=== PATIENT | female | born 1960 | race Caucasian/White ===

== ENCOUNTER → 2017-01-03 | Outpatient (CLI) | payer BC ==
[~2017-01-03] MED LIST: ESCI10TA17 PO
--- NOTE | 2017-01-06 08:01 | MAMMOGRAPHY REPORT ---
BILATERAL DIGITAL SCREENING MAMMOGRAM TOMOSYNTHESIS WITH CAD: 01/03/2017 CLINICAL HISTORY: Routine screening. TECHNIQUE: Breast tomosynthesis in addition to standard 2D mammography was performed. Current study was also evaluated with a Computer Aided Detection (CAD) system. COMPARISON: Comparison is made to exams dated: 01/02/2016 mammogram, 11/11/2014 mammogram, 09/09/2013 m ammogram, 09/21/2012 mammogram, 09/08/2012 mammogram, and 01/22/2011 mammogram - [facility]. BREAST COMPOSITION: The tissue of both breasts is heterogeneously dense, which may obscure small mas ses. FINDINGS: No suspicious masses, calcifications, or areas of architectural distortion are noted in ei ther breast. There has been no significant interval change compared to prior exams. Partially circum scribed and partially obscured mass in the left subareolar breast is stable compared to multiple prio r exams and considered benign given long-term stability. IMPRESSION: ACR BI-RADS CATEGORY 2: BENIGN There is no mammographic evidence of malignancy. A 1 year screening mammogram is recommended. The pa tient will receive written notification of the results. Approximately 10% of breast cancers are not detected with mammography. A negative mammographic report should not delay biopsy if a clinically suggestive mass is present. Mary Jo Reyes M.D. /:01/03/2017 14:41:55 Log Chain Worker: Oliva LE(Anneliese)(Damon), [facility] letter sent: Normal 1/2 BI-RADS Code: ACR BI-RADS Category 2: Benign
== END | disposition home or self-care (01) ==
LOC: C.MAMM 10:30
PROVIDERS: ATTEND Family Medicine
DX: Z12.31 Encounter for screening mammogram for malignant neoplasm of breast (principal)

== ENCOUNTER → 2018-01-06 | Outpatient (CLI) | payer OTHER ==
--- NOTE | 2018-01-07 13:37 | MAMMOGRAPHY REPORT ---
BILATERAL DIGITAL SCREENING MAMMOGRAM TOMOSYNTHESIS WITH CAD: 01/06/2018 CLINICAL HISTORY: Routine screening. TECHNIQUE: The study was acquired using full field digital technology and interpreted from soft copy. Breast tomosynthesis in addition to standard 2D mammography was performed. Current study was also ev aluated with a Computer Aided Detection (CAD) system. COMPARISON: Comparison is made to exams dated: 01/03/2017 mammogram, 01/02/2016 mammogram, 11/11/2014 m ammogram, 09/09/2013 mammogram, 09/08/2012 mammogram, and 01/22/2011 mammogram - [facility]ter. BREAST COMPOSITION: The tissue of both breasts is heterogeneously dense, which may obscure small mass es. FINDINGS: There is a benign partially circumscribed and obscured 12 mm mass in the anterior retroareo lar left breast, that appears stable dating back to at least 2008, therefore likely benign. Stable a symmetry in the lateral right breast. No new suspicious mass, architectural distortion or cluster of microcalcifications is seen. IMPRESSION: ACR BI-RADS CATEGORY 1: NEGATIVE There is no mammographic evidence of malignancy. A 1 year screening mammogram is recommended.( 019) The patient will receive written notification of the results. Some breast cancers are not detected with mammography. A negative mammographic report should not chandrika y biopsy if a clinically suggestive mass is present. Tyra Dugan M.D. ay/:01/06/2018 15:35:00 High Speed Printer Operator: RT Sonia(Anneliese)(M), [facility] letter sent: Normal 1/2 BI-RADS Code: ACR BI-RADS Category 1: Negative
== END | disposition home or self-care (01) ==
LOC: C.MAMM 09:06
PROVIDERS: ATTEND Family Medicine
DX: Z12.31 Encounter for screening mammogram for malignant neoplasm of breast (principal)

== ENCOUNTER 2022-10-14 11:50 | Inpatient (IN) ==
[2022-10-14] MEDS ORDERED: oxyCODONE HCL IR 5 MG TAB (IMMEDIATE RELEASE) PO STA (12:06)
--- NOTE | 2022-10-14 12:12 | Emergency Department Note ---
ED Provider Note History of Present Illness Chief Complaint: Leg Injury/Pain Stated Complaint: LEFT LEG INJURY Time Seen by Provider: 10/14/22 11:56 Source: patient Mode of arrival: ambulatory Limitations: no limitations This patient is a 62-year-old female who presents to the emergency department for evaluation of an injury to her left lower leg. Patient was standing on a table changing a light bulb when she lost her balance and fell, injuring her left leg. She denies any lightheadedness or dizziness causing the fall. She reports pain in her left lower leg, below her knee. It feels okay when she is standing still but she states that her muscles in the leg are tensing up. She did not take anything for pain prior to arrival. Home Medications Medication Instructions Recorded Confirmed Type calcium carbonate 600 mg calcium 600 mg PO DAILY 10/14/22 10/14/22 History (1,500 mg) tablet (Calcium) escitalopram oxalate 10 mg tablet 10 mg PO DAILY 10/14/22 10/14/22 History multivitamin 1 tab PO DAILY 10/14/22 10/14/22 History Allergies Allergy/AdvReac Type Severity Reaction Status Date / Time No Known Allergies Allergy Unverified 10/14/22 14:11 Past Med/Surg History Medical History (Updated 10/14/22 @ 20:47 by Alexandra Benoit PA-C) Depression with anxiety No pertinent past medical history Wrist fracture Surgical History (Updated 10/14/22 @ 15:54 by Yehuda Rojas MD) History of tubal ligation Social History Smoking Status: Never smoker Hx Alcohol Use: Yes Alcohol type: wine Hx Substance Use: No Preferred Language: Turkmen Communication Ability: Effective Nutritional Services Director Required: No Beliefs That Will Affect Care: None Current Living Situation: Spouse Feels Safe at Home: Yes Physical Exam Vital Signs Vital Signs - 24 hr 10/14/22 11:53 Temperature 36.5 C Temperature Source Temporal Artery Scan Pulse Rate 55 L Respiratory Rate 18 Respiratory Effort / Characteristics Non-Labored Spontaneous Respiratory Depth Normal Respiratory Pattern Regular Blood Pressure 118/81 Blood Pressure Mean 93 Pulse Oximetry 99 Oxygen Delivery Method Room Air Sepsis Recent Fever Within 48 Hours No Sepsis New/Unexplained Change in Mental Status No Sepsis Action Taken by Nursing No Action Required VITALS: Vitals are noted on the nurse's note and reviewed by myself. GENERAL: This is a 62-year-old female, in no acute distress, well-developed well-nourished. MUSCULOSKELETAL: No obvious deformity noted. There is tenderness to palpation of the left leg at the proximal tibia/fibula. No tenderness of the knee, ankle or foot. Full range of motion of the toes. Dorsalis pedis pulse 2+. NEURO: Patient was alert and oriented to person place and time. Distal sensa tion intact over the left lower extremity. Course Administered Medications Docusate Sodium (Docusate Sodium 100 Mg Cap) 100 mg PO BID JESSICA Stop: 11/13/22 20:59 Last Admin: 10/14/22 20:17 Dose: Not Given Documented By: EKF Oxycodone HCl (Oxycodone Hcl Ir 5 Mg Tab (Immediate Release)) 10 mg PO Q4H PRN PRN Reason: SEVERE Pain (7,8,9,10) Stop: 10/28/22 15:42 Last Admin: 10/14/22 20:16 Dose: 10 mg Documented By: EKF Discontinued Medications Oxycodone HCl (Oxycodone Hcl Ir 5 Mg Tab (Immediate Release)) 5 mg PO NOW STA Stop: 10/14/22 12:07 Last Admin: 10/14/22 12:17 Dose: 5 mg Documented By: RSL Medical Decision Making Differential Diagnosis Fracture, subluxation, dislocation, contusion, ligamentous injury, neurovascular, compartment syndrome, rhabdomyolysis, as well as other pathologies. Home Medications was personally reviewed by me Imaging Data Attestation: I personally reviewed and interpreted this imaging study as follows: Radiologist's Impression: Tibia/Fibula X-Ray 10/14/22 12:06 XR tibia fibula LT 2V HISTORY: 62 years-old Female left leg injury, fall acute pain of the left lower extremity status post fall COMPARISON: None TECHNIQUE: 2 views of the left tibia and fibula FINDINGS: Mild osteoarthritis of the knee and ankle. Small lipohemarthrosis is of the knee. Comminuted intra-articular fracture of the proximal tibia probably involves the lateral tibial plateau with fracture extension into the tibial spines, medial, lateral, anterior and posterior aspects of the proximal tibial metaphysis. Mild apex ventral angulation with mild impaction and several millimeters of lateral and posterior displacement. Lateral tibial plateau articular cortical depression. Comminuted intra-articular fracture of the proximal fibula demonstrates impaction and with 4 mm lateral displacement and mild apex medial angulation. The distal femur appears intact. Degenerative spurring of the calcaneus. IMPRESSION: 1. Acute, comminuted, angulated and mildly displaced proximal tibial fracture with cortical depression of the lateral tibial plateau. 2. Acute, comminuted, slightly angulated and mildly displaced proximal fibular fracture. 3. Lipohemarthrosis of the knee. ACT 112: Negative or not required by law. The above report was generated using voice recognition software. It may contain grammatical, syntax or spelling errors. Electronically signed by: Juan José Roe M.D. 10/14/2022 12:26 PM Knee X-Ray 10/14/22 12:57 XR knee LT 1 or 2V routine HISTORY: 62 years-old Female Need AP and Lateral gantry at Joint line, trauma acute fracture of the left knee COMPARISON: Radiographs of same day at 11:59 AM TECHNIQUE: 2 views of the left tibia and fibula FINDINGS: Mild osteoarthritis of the knee and ankle. Small lipohemarthrosis is of the knee. Comminuted intra- articular fracture of the proximal tibia probably involves the lateral tibial plateau with fracture extension into the tibial spines, medial, lateral, anterior and posterior aspects of the proximal tibial metaphysis. Mild apex ventral angulation with mild impaction and several millimeters of lateral and posterior displacement. Lateral tibial plateau articular cortical depression. Comminuted intra-articular fracture of the proximal fibula demonstrates impaction and with 4 mm lateral displacement and mild apex medial angulation. The distal femur appears intact. Degenerative spurring of the calcaneus. IMPRESSION: 1. Acute, comminuted, angulated and mildly displaced proximal tibial fracture with cortical depression of the lateral tibial plateau. Unchanged alignment. 2. Acute, comminuted, slightly angulated and mildly displaced proximal fibular fracture. 3. Lipohemarthrosis of the knee. ACT 112: Negative or not required by law. The above report was generated using voice recognition software. It may contain grammatical, syntax or spelling errors. Electronically signed by: Juan José Roe M.D. 10/14/2022 2:[address] 10/14/22 12:58 CT knee LT wo con HISTORY: 62 years-old Female preop planning, eval articular fracture no acute left knee pain status post fall COMPARISON: Knee radiographs of same day TECHNIQUE: Multiple axial CT images of the left knee were obtained without the use of IV contrast. A dose lowering technique was used consistent with the principals of ALARA. FINDINGS: Mild osteoarthritis of the knee and ankle. Small lipohemarthrosis is of the knee with mild anterior subcutaneous edema. Tendons, ligaments and menisci are not well evaluated by CT technique. Comminuted intra- articular fracture of the proximal tibia probably involves the lateral tibial plateau with fracture extension into the tibial spines, medial, lateral, anterior and posterior aspects of the proximal tibial metaphysis. Fracture lines also extend into the medial tibial plateau, most pronounced posteriorly. Mild apex ventral angulation with mild impaction and several millimeters of lateral and posterior displacement. Lateral tibial plateau articular cortical depression of 3 mm. Fracture extension into the proximal tibial metaphysis, image 241 series 3. No intra-articular bodies identified. Comminuted intra-articular fracture of the proximal fibula demonstrates impaction and with 4 mm lateral displacement and mild apex medial angulation. The distal femur appears intact. Mild tricompartmental osteoarthritis. IMPRESSION: 1. Acute, comminuted intra-articular proximal tibial fracture with mild impaction and displacement as above. Fracture lines involve the medial and lateral tibial plateaus, tibial spines and proximal tibial metaphysis. 2. Mild articular cortical depression of the lateral tibial plateau. 3. Acute, comminuted and mildly displaced proximal fibular fracture. 4. Lipohemarthrosis. ACT 112: Negative or not required by law. The above report was generated using voice recognition software. It may contain grammatical, syntax or spelling errors. Electronically signed by: Juan José Roe M.D. 10/14/2022 2:16 PM Knee X-Ray 10/14/22 13:54 XR knee RT 1 or 2V routine HISTORY: 62 years-old Female AP only, comparison to determine need of surgery acute pain of the left knee COMPARISON: Left knee radiographs of same day TECHNIQUE: AP view of the right knee FINDINGS: No acute fracture, dislocation, significant osteoarthritis or soft tissue abnormality identified. IMPRESSION: No acute fracture or dislocation. ACT 112: Negative or not required by law. The above report was generated using voice recognition software. It may contain grammatical, syntax or spelling errors. Electronically signed by: Juan José Roe M.D. 10/14/2022 2:11 PM MDM Narrative This patient is a 62-year-old female who presents to the emergency department for evaluation of an injury to her left lower leg, just distal to the knee. X- rays were obtained and reviewed by radiology and patient was found to have a tibial plateau fracture and fracture of the proximal fibula. Orthopedics was consulted and Dr. Rojas reviewed the images. He ordered additional imaging including a CT of the leg which was performed. He consulted on the patient and elected to keep her for operative management. Patient received oxycodone while in the emergency department. She was placed in a knee immobilizer. She was informed of all findings and the plan. Impression Closed fracture of lateral portion of left tibial plateau, Fracture of left proximal fibula Discharge Plan Visit Data Chief Complaint: Leg Injury/Pain Stated Complaint: LEFT LEG INJURY ED Provider: Rene Tucker ED Midlevel Provider: Alexandra Benoit Discharge Problem: Closed fracture of lateral portion of left tibial plateau, Fracture of left proximal fibula Patient Disposition: Admitted As Inpatient Discharge Instructions Interventions: ED Discharge Assessment Last Done: 10/14/22 17:57
--- NOTE | 2022-10-14 12:29 | XRay Report ---
XR tibia fibula LT 2V HISTORY: 62 years-old Female left leg injury, fall acute pain of the left lower extremity status pos t fall COMPARISON: None TECHNIQUE: 2 views of the left tibia and fibula FINDINGS: Mild osteoarthritis of the knee and ankle. Small lipohemarthrosis is of the knee. Comminuted intra-ar ticular fracture of the proximal tibia probably involves the lateral tibial plateau with fracture ext ension into the tibial spines, medial, lateral, anterior and posterior aspects of the proximal tibial metaphysis. Mild apex ventral angulation with mild impaction and several millimeters of lateral and posterior displacement. Lateral tibial plateau articular cortical depression. Comminuted intra-articular fracture of the proximal fibula demonstrates impaction and with 4 mm later al displacement and mild apex medial angulation. The distal femur appears intact. Degenerative spurri ng of the calcaneus. IMPRESSION: 1. Acute, comminuted, angulated and mildly displaced proximal tibial fracture with cortical depressio n of the lateral tibial plateau. 2. Acute, comminuted, slightly angulated and mildly displaced proximal fibular fracture. 3. Lipohemarthrosis of the knee. ACT 112: Negative or not required by law. The above report was generated using voice recognition software. It may contain grammatical, syntax o r spelling errors. Electronically signed by: Juan José Roe M.D. 10/14/2022 12:26 PM
--- NOTE | 2022-10-14 13:04 | Orthopedic Consultation ---
Date of Service October 14, 2022 Assessment & Plan (1) Closed fracture of lateral portion of left tibial plateau: (2) Fracture of left proximal fibula: History of Present Illness Reason for Consultation: . Requesting Physician: . . Allergies Allergy/AdvReac Type Severity Reaction Status Date / Time No Known Allergies Allergy Unverified 05/11/12 21:34 Home Medications Medication Instructions Recorded Confirmed Type Escitalopram (Lexapro) 10 mg PO DAILY #0 tabs 05/11/12 History Past Med/Surg History Social History Smoking Status: Never smoker Preferred Language: Urdu Feels Safe at Home: Yes Review of Systems All systems reviewed & are unremarkable except as noted in HPI & below. Physical Exam . Results & Data Results & Data Laboratory Results . Diagnostic Findings . PG Care Time/CCT Total # of Minutes Spent Total Time Spent with Patient: Total time spent is greater than 50% in coordination of care (as documented) at patient's floor/unit and/or counseling patient: Coding Diagnoses Closed fracture of lateral portion of left tibial plateau S82.122A Fracture of left proximal fibula S82.832A
--- NOTE | 2022-10-14 14:12 | XRay Report ---
XR knee LT 1 or 2V routine HISTORY: 62 years-old Female Need AP and Lateral gantry at Joint line, trauma acute fracture of the left knee COMPARISON: Radiographs of same day at 11:59 AM TECHNIQUE: 2 views of the left tibia and fibula FINDINGS: Mild osteoarthritis of the knee and ankle. Small lipohemarthrosis is of the knee. Comminute d intra- articular fracture of the proximal tibia probably involves the lateral tibial plateau with f racture extension into the tibial spines, medial, lateral, anterior and posterior aspects of the prox imal tibial metaphysis. Mild apex ventral angulation with mild impaction and several millimeters of l ateral and posterior displacement. Lateral tibial plateau articular cortical depression. Comminuted i ntra-articular fracture of the proximal fibula demonstrates impaction and with 4 mm lateral displacem ent and mild apex medial angulation. The distal femur appears intact. Degenerative spurring of the ca lcaneus. IMPRESSION: 1. Acute, comminuted, angulated and mildly displaced proximal tibial fracture with cortical depressio n of the lateral tibial plateau. Unchanged alignment. 2. Acute, comminuted, slightly angulated and mildly displaced proximal fibular fracture. 3. Lipohemarthrosis of the knee. ACT 112: Negative or not required by law. The above report was generated using voice recognition software. It may contain grammatical, syntax o r spelling errors. Electronically signed by: Juan José Roe M.D. 10/14/2022 2:10 PM
--- NOTE | 2022-10-14 14:13 | XRay Report ---
XR knee RT 1 or 2V routine HISTORY: 62 years-old Female AP only, comparison to determine need of surgery acute pain of the left knee COMPARISON: Left knee radiographs of same day TECHNIQUE: AP view of the right knee FINDINGS: No acute fracture, dislocation, significant osteoarthritis or soft tissue abnormality identified. IMPRESSION: No acute fracture or dislocation. ACT 112: Negative or not required by law. The above report was generated using voice recognition software. It may contain grammatical, syntax o r spelling errors. Electronically signed by: Juan José Roe M.D. 10/14/2022 2:11 PM
--- NOTE | 2022-10-14 14:18 | CT Scan Report ---
CT knee LT wo con HISTORY: 62 years-old Female preop planning, eval articular fracture no acute left knee pain status post fall COMPARISON: Knee radiographs of same day TECHNIQUE: Multiple axial CT images of the left knee were obtained without the use of IV contrast. A dose lowering technique was used consistent with the principals of ALARA. FINDINGS: Mild osteoarthritis of the knee and ankle. Small lipohemarthrosis is of the knee with mild anterior s ubcutaneous edema. Tendons, ligaments and menisci are not well evaluated by CT technique. Comminuted intra- articular fracture of the proximal tibia probably involves the lateral tibial plate au with fracture extension into the tibial spines, medial, lateral, anterior and posterior aspects of the proximal tibial metaphysis. Fracture lines also extend into the medial tibial plateau, most pron ounced posteriorly. Mild apex ventral angulation with mild impaction and several millimeters of later al and posterior displacement. Lateral tibial plateau articular cortical depression of 3 mm. Fracture extension into the proximal tibial metaphysis, image 241 series 3. No intra-articular bodies identif ied. Comminuted intra-articular fracture of the proximal fibula demonstrates impaction and with 4 mm later al displacement and mild apex medial angulation. The distal femur appears intact. Mild tricompartment al osteoarthritis. IMPRESSION: 1. Acute, comminuted intra-articular proximal tibial fracture with mild impaction and displacement as above. Fracture lines involve the medial and lateral tibial plateaus, tibial spines and proximal tib ial metaphysis. 2. Mild articular cortical depression of the lateral tibial plateau. 3. Acute, comminuted and mildly displaced proximal fibular fracture. 4. Lipohemarthrosis. ACT 112: Negative or not required by law. The above report was generated using voice recognition software. It may contain grammatical, syntax o r spelling errors. Electronically signed by: Juan José Roe M.D. 10/14/2022 2:16 PM
[2022-10-14] MEDS ORDERED: MAGNESIUM HYDROXIDE SUSP 30 ML UDC PO PRN (15:37)
[2022-10-14] MEDS ORDERED: diphenhydrAMINE 50 MG/ML VIAL IV PRN (15:37)
[2022-10-14] MEDS ORDERED: ONDANSETRON INJ 2 MG/ML 2 ML VIAL IV PRN (15:37)
[2022-10-14] MEDS ORDERED: diphenhydrAMINE Capsule 25 MG CAP PO PRN (15:37)
[2022-10-14] MEDS ORDERED: ALUMINUM/MAGNESIUM SUSP 30 ML UDC PO PRN (15:37)
[2022-10-14] MEDS ORDERED: oxyCODONE HCL IR 5 MG TAB (IMMEDIATE RELEASE) PO PRN (15:43)
[2022-10-14] MEDS ORDERED: ACETAMINOPHEN 500 MG TAB PO PRN (15:43)
--- NOTE | 2022-10-14 16:04 | History & Physical Report ---
Date of Service October 14, 2022 Assessment & Plan (1) Fracture of left proximal fibula: (2) Closed fracture of lateral portion of left tibial plateau: Plan I reviewed the diagnosis, prognosis and treatment options for lateral depression tibial plateau fracture and concomitant fibular head fracture. She has a greater degree of valgus on exam and measurably so on comparative x-rays. There is approximately 10 mm of condylar widening. The fracture would benefit from improved coronal alignment and reduction of the condylar widening. We did discuss that there is a risk of knee arthritis with this tibial plateau fracture pattern. Nonoperative treatment would be 6-8 weeks of nonweightbearing in a brace, and will likely result in noticeable valgus alignment compared to other side. She may have some knee instability because of it. A knee replacement could address in the future if it is a problem. The advantages of surgery would be to restore the coronal alignment and improve knee stability. The predictability of need for total knee arthroplasty in future is uncertain, but improved coronal alignment will likely help the health of the knee. We discussed that the fibular head fracture will be better aligned with episcopal of the lateral column of the tibia. The fibular head itself does not need to be stabilized. We discussed the risks of surgery includes but are not limited to infection, neurovascular injury, arthrofibrosis of the knee, need for repeat or revision surgery, nonunion, malunion, progressive degenerative change despite surgery, symptomatic implants, failure of the implants, pain syndromes, blood clots, and complications related to anesthesia. Her and her partner asked appropriate questions, demonstrated good understanding, and were agreeable to proceed with admission and surgery. Will admit tonight for strict elevation and preoperative work-up. Surgery tentatively scheduled for tomorrow. The plan will be for left tibial plateau open reduction and internal fixation with knee arthroscopy. History of Present Illness Chief Complaint: Left tibial plateau fracture Primary Care Provider: Yunior Leon MD 62-year-old female sustained fall from a 4 foot height today while trying to change a light bulb, resulting in immediate pain at the knee and inability to bear weight. She was brought to the emergency room where a lateral tibial plateau fracture was diagnosed. Pain localized to the knee. Denies any numbness or tingling. She reports no previous history of knee pain or injury. She is an avid cyclist and active individual. Previous wrist fracture treated greater than 10 years ago with a cast. No knowledge of osteoporosis. No family history of osteoporosis. No history of blood clots or active cancer. Allergies Allergy/AdvReac Type Severity Reaction Status Date / Time No Known Allergies Allergy Unverified 10/14/22 14:11 Home Medications Medication Instructions Recorded Confirmed Type calcium carbonate 600 mg calcium 600 mg PO DAILY 10/14/22 10/14/22 History (1,500 mg) tablet (Calcium) escitalopram oxalate 10 mg tablet 10 mg PO DAILY 10/14/22 10/14/22 History multivitamin 1 tab PO DAILY 10/14/22 10/14/22 History Past Med/Surg History Medical History (Updated 10/14/22 @ 15:54 by Yehuda Rojas MD) Depression with anxiety No pertinent past medical history Wrist fracture Surgical History (Updated 10/14/22 @ 15:54 by Yehuda Rojas MD) History of tubal ligation Social History Smoking Status: Never smoker Preferred Language: Icelandic Feels Safe at Home: Yes Review of Systems All systems reviewed & are unremarkable except as noted in HPI & below. Physical Exam LLE: Mild knee effusion. Some edema formation about the proximal tibia. Positive DF/PF/EHL. Neurovascular intact. Focally tender along the proximal tibia and fibular head. Can activate quad but cannot perform straight leg raise without significant pain. Intolerant of ligamentous exam. No skin compromise. Constitutional WD/WN, vitals as above Respiratory normal respiratory effort; no respiratory distress Cardiovascular Extremities: normal capillary refill; no edema Chest (Breasts) Chest: normal inspection of chest Skin no rashes, warm and dry Psychiatric A+Ox3, euthymic affect Results & Data Results & Data Laboratory Results . Diagnostic Findings Radiographs of the knee, tibia/fib, and CT scan reveal a lateral depression tibial plateau fracture with concomitant depression of a comminuted fibular head fracture. Comparison to the right knee shows condylar widening of approximately 10 mm and additional induced 12 degrees of valgus deformity at the knee. The lateral tibial spine is significant depressed. The articular surfaces no significant step-offs. There is propagation of the fracture line and a coronal plane towards the posterior medial tibia. Highly comminuted in appearance of osteopenia. Overall the significant displacement is mostly depression of that lateral side with condylar widening. PG Care Time/CCT Total # of Minutes Spent Total Time Spent with Patient: Total time spent is greater than 50% in coordination of care (as documented) at patient's floor/unit and/or counseling patient: Coding Level of Care Code 91807 INT INP/OBS CARE 3/75MIN (57 - DECISION FOR SURGERY) Diagnoses Fracture of left proximal fibula S82.832A Closed fracture of lateral portion of left tibial plateau S82.122A
--- NOTE | 2022-10-14 17:16 | XRay Report ---
XR chest 2V PA/lateral HISTORY: 62 years-old Female preop Age>60 preoperative exam COMPARISON: None TECHNIQUE: PA and lateral views of the chest FINDINGS: Cardiomediastinal and hilar silhouettes are within normal limits. No pneumothorax, pleural effusion, airspace consolidation or overt pulmonary edema. Bones of the chest appear grossly intact. IMPRESSION: No acute process. ACT 112: Negative or not required by law. The above report was generated using voice recognition software. It may contain grammatical, syntax o r spelling errors. Electronically signed by: Juan José Roe M.D. 10/14/2022 5:15 PM
[2022-10-14] MEDS: oxyCODONE HCL IR 5 MG TAB (IMMEDIATE RELEASE) PO PRN (20:16)
[2022-10-14] MEDS: DOCUSATE SODIUM 100 MG CAP PO SCH (20:17)
[2022-10-14] MEDS: HYDROmorphone INJ 0.5 MG/0.5 ML SYR IV PRN (22:43)
[2022-10-15] MEDS: HYDROmorphone INJ 0.5 MG/0.5 ML SYR IV PRN ×4 (01:46→22:18)
[2022-10-15] MEDS ORDERED: ceFAZolin 2000MG 2,000 MG/15 ML SYR IV SCH (06:00)
[2022-10-15] MEDS: oxyCODONE HCL IR 5 MG TAB (IMMEDIATE RELEASE) PO PRN (07:44)
--- NOTE | 2022-10-15 08:22 | Electrocardiogram Report ---
Test Reason : Blood Pressure : / mmHG Vent. Rate : 071 BPM Atrial Rate : 071 BPM P-R Int : 192 ms QRS Dur : 096 ms QT Int : 394 ms P-R-T Axes : 026 047 041 degrees QTc Int : 428 ms Normal sinus rhythm Normal ECG No previous ECGs available Confirmed by Memo John ([id number]) on 10/15/2022 8:22:11 AM Referred By: REFERRED SELF Confirmed By:Memo John
[2022-10-15] MEDS: DOCUSATE SODIUM 100 MG CAP PO SCH ×3 (08:52→21:11)
[2022-10-15] MEDS ORDERED: fentaNYL citrate PF 100 MCG/2 ML VIAL ONE ×2 (11:57→15:01)
[2022-10-15] MEDS ORDERED: DEXAMETHASONE SOD INJ 4 MG/ML VIAL ONE (11:57)
[2022-10-15] MEDS ORDERED: LIDOCAINE 2% 2 ML VIAL/AMP(20MG/ML) INFIL ONE (11:57)
[2022-10-15] MEDS ORDERED: PROPOFOL IV EMULSION 10 MG/ML 20 ML VIAL IV ONE (11:57)
[2022-10-15] MEDS ORDERED: ONDANSETRON INJ 2 MG/ML 2 ML VIAL ONE (11:57)
[2022-10-15] MEDS ORDERED: ROCURONIUM BROMIDE 10 MG/ML 5 ML VIAL IV ONE ×2 (11:57→15:01)
[2022-10-15] MEDS ORDERED: MIDAZOLAM HCL 1 MG/ML 2ML VIAL ONE (11:57)
--- NOTE | 2022-10-15 12:22 | Anesthesiology Consultation ---
Date of Service October 15, 2022 Assessment & Plan (1) Encounter for pre-operative examination: Chart Review Chart Review: Acceptable Risk for Surgery History Surgery Operation Date: 10/15/22 08:20 Proposed Procedures p Left Open Reduction Internal Fixation Tibial Plateau Fracture - Yehuda Rojas MD s Arthroscopy Knee - Yehuda Rojas MD Height/Weight Height: 5 ft 8 in Weight: 77.4 kg Allergies Allergy/AdvReac Type Severity Reaction Status Date / Time No Known Allergies Allergy Unverified 10/14/22 14:11 Medications Home Medications Medication Instructions Recorded Confirmed Last Taken calcium carbonate 600 mg calcium 600 mg PO DAILY 10/14/22 10/14/22 Unknown (1,500 mg) tablet (Calcium) escitalopram oxalate 10 mg tablet 10 mg PO DAILY 10/14/22 10/14/22 Unknown multivitamin 1 tab PO DAILY 10/14/22 10/14/22 Unknown Active Medications Generic Name Dose Route Start Last Admin Trade Name Freq PRN Reason Stop Dose Admin Docusate Sodium 100 mg 10/14/22 21:00 10/15/22 08:52 Docusate Sodium 100 Mg Cap PO 11/13/22 20:59 Not Given BID JESSICA Hydromorphone HCl 0.5 mg 10/14/22 15:43 10/15/22 09:36 Hydromorphone Inj 0.5 Mg/0.5 Ml Syr IV 10/28/22 15:42 0.5 mg Q3H PRN Administration Pain (6,7,8,9,10) Oxycodone HCl 10 mg 10/14/22 15:43 10/15/22 07:44 Oxycodone Hcl Ir 5 Mg Tab (Immediate Release) PO 10/28/22 15:42 10 mg Q4H PRN Administration SEVERE Pain (7,8,9,10) NPO Date Last Intake of Fluids: 10/14/22 Time Last Intake of Fluids: 21:00 Last Intake of Fluids Comment: sips with meds Date Last Intake of Solids: 10/14/22 Time Last Intake of Solids: 19:00 Past Medical History Medical History Depression with anxiety No pertinent past medical history Wrist fracture Past Surgical History Surgical History History of tubal ligation Social History Smoking Status: Never smoker Hx Alcohol Use: Yes Alcohol type: wine alcohol intake frequency: 0-2 drinks per day Hx Substance Use: No Physical Exam Vital Signs Last Vital Signs Temp 36.6 C 10/15/22 12:09 Pulse 63 10/15/22 12:09 Resp 18 10/15/22 12:09 BP 147/93 H 10/15/22 12:09 Pulse Ox 93 10/15/22 12:09 O2 Del Method Room Air 10/15/22 12:09 Testing Electrocardiogram Date: 10/14/22 Findings: + NSR @ (71) Chest X-Ray Date: 10/14/22 Findings: + NAD
--- NOTE | 2022-10-15 12:26 | History & Physical Bridge Note ---
Date of Service October 15, 2022 History & Physical Bridge Note I have examined the patient, reviewed the History & Physical and in the interval since the performance of the History & Physical I have noted the following changes of clinical significance: no changes noted
[2022-10-15 12:49] LABS: Basophils # (auto) 0.02 K/uL (0-0.2); Basophils % (auto) 0.3 %; Hematocrit (blood only) 35.2 % (37.0-47.0); Hemoglobin 11.7 g/dl (12.0-16.0); Immature Granulocytes # (auto) 0.02 K/uL (0.01-0.20); Immature Granulocytes % (auto) 0.3 %; Lymphocytes # (auto) 1.05 K/uL (1.2-3.4); Lymphocytes % (auto) 15.2 %; Mean Corpuscular Hemoglobin 33.1 pg (25.0-34.0); Mean Corpuscular Hgb Conc 33.2 g/dL (32.0-36.0); Mean Corpuscular Volume 99.7 fL (80.0-100.0); Mean Platelet Volume 11.1 fL (9.4-12.4); Monocytes # (auto) 0.59 K/uL (0.11-0.59); Monocytes % (auto) 8.5 %; Neutrophils # (auto) 5.24 K/uL (1.40-6.50); Neutrophils % (auto) 75.7 %; Platelet Count 158 K/uL (130-400); RDW Coefficient of Variation 12.2 % (11.5-14.5); RDW Standard Deviation 44.6 fL (36.4-46.3); Red Blood Count 3.53 M/uL (4.20-5.40); White Blood Count 6.92 K/ul (4.8-10.8)
[2022-10-15] MEDS ORDERED: ROPIVACAINE 0.5% 5 MG/ML 30 ML VIAL ONE (12:50)
[2022-10-15] MEDS ORDERED: BUPIVACAINE/EPINEPHRINE 0.25% 1:200,000 30 ML VIAL ONE (12:51)
[2022-10-15] MEDS ORDERED: PROMETHAZINE HCL 12.5 MG in SODIUM CHLORIDE 0.9% 50 ML IV PRN (12:55)
[2022-10-15] MEDS ORDERED: ONDANSETRON INJ 2 MG/ML 2 ML VIAL IV PRN ×2 (12:55→17:54)
[2022-10-15] MEDS ORDERED: ATROPINE SULFATE 0.1 MG/ML 10ML SYR IV PRN (12:55)
[2022-10-15] MEDS ORDERED: HYDROmorphone INJ 1 MG/ML SYRINGE IV PRN (12:55)
[2022-10-15] MEDS ORDERED: KETOROLAC 30 MG/ML VIAL IV PRN (12:55)
[2022-10-15 12:58] LABS: BUN Creatinine Ratio 21.8 (10-20); Calcium 8.9 mg/dl (8.6-10.3); Creatinine Clr Calc Pharmacy 72.4 ml/min; Est GFR (African American) 82.2 ml/min; Est GFR (Non-African American) 70.9 ml/min; Potassium 4.3 mmol/L (3.5-5.1)
[2022-10-15 13:10] LABS: Prothrombin Time 10.8 Seconds (9.0-12.0)
[2022-10-15] MEDS ORDERED: NEOSTIGMINE METHYLSULFATE 1 MG/ML 10ML VIAL ONE (15:48)
[2022-10-15] MEDS ORDERED: GLYCOPYRROLATE 0.2 MG/ML VIAL ONE (15:48)
--- NOTE | 2022-10-15 15:52 | Fluoroscopy Report ---
FL tibia/fibula LT 2V CLINICAL HISTORY: TIBIAL PLATEAU LT COMPARISON STUDY: Left tibia and fibula and left knee radiographs and CT of the left knee October 14. FLUOROSCOPY TIME: 1 minute and 55 seconds. Ka, r: 6.35 mGy FLUOROSCOPIC IMAGES: 5. FINDINGS: Fluoroscopy was provided during open reduction and internal fixation of the proximal left t ibial fracture with a lateral plate and screws. Fracture alignment has improved and appears near paul omic. There are no unexpected radiopaque foreign bodies. Fibular fracture alignment has also improved . IMPRESSION: Fluoroscopy provided during open reduction and internal fixation of the proximal left ti bial fracture. ACT 112: Negative or not required by law. Electronically signed by: Shon Morales M.D. 10/15/2022 3:51 PM
[2022-10-15] MEDS ORDERED: MEPERIDINE HCL 25 MG/ML CARP/VIAL IV PRN (17:05)
[2022-10-15] MEDS ORDERED: MEPERIDINE HCL 25 MG/ML CARP/VIAL ONE (17:05)
--- NOTE | 2022-10-15 17:11 | Operative Report ---
PG Post Operative Report Pre & Post Diagnosis Operation Date: 10/15/22 08:20 Pre-Op Diagnosis: LEFT TIBIAL PLATEAU FRACTURE Post-Op Diagnosis: LEFT TIBIAL PLATEAU FRACTURE, LATERAL MENISCUS TEAR, PATELLA CHONDROMALACIA I identified the patient and participated in the time-out.: Yes Procedure Operation Date: 10/15/22 08:20 Actual Procedures p Left Open Reduction Internal Fixation Tibial Plateau Fracture, Left Knee Arthroscopy, Partial Lateral Meniscectomy, patellar chondroplasty (Left) - Yehuda Rojas MD Surgeon Yehuda Rojas MD Linen Keeper Haider Whiteside PA-C Estimated Blood Loss 100 Findings See Below EUA showed valgus instability, stable anterior and posterior drawer. Stable to varus stress. The fracture was highly comminuted and depressed throughout the lateral tibial plateau. There is some extension into the metadiaphyseal junction with a mild flexion deformity. Fracture was provisionally stabilized with axial traction using the universal distractor on the lateral side and rafting K wires, with periarticular large joint clamp. All Synthes implants: Synthes 8 hole left variable angle proximal lateral tibial plate, 3.5 variable angle locking screws, 3.5 cortical screws. Post fixation arthroscopy revealed intact medial tibial plateau, intact lateral tibial plateau with a slight posterior depression, radially oriented acute tear of the body lateral meniscus amenable to partial meniscectomy of less than 30%. Mild chondromalacia of the patella medial lateral facets addressed with chondroplasty. Specimens None Anesthesia Type General Regional Complications none Disposition Accompanied Patient To Recovery: Yes Disposition: Recovery Room Indications 62-year-old otherwise healthy and active female sustained a fall from about 4 foot height while changing a light bulb, resulting immediate pain and deformity to the knee. She was brought to the emergency room, where a lateral tibial plateau depression fracture was diagnosed. Given her overall alignment and chondral widening of the plateau, I did recommend surgical stabilization. We reviewed the techniques, risks, benefits, expectations for outcomes, and required rehabilitation. After our discussion, her and her were both in agreement to proceed with surgery. Informed consent was reviewed and confirmed today in the preoperative holding area. Description of Procedure On the day of surgery, the patient was greeted in the preoperative holding area. The informed consent was reviewed and confirmed by myself and the patient. The patient identified the surgical site and was marked by me. The patient was then turned over to anesthesia. Anesthesia performed a regional anesthetic block with excellent effect. Patient was then taken to the operating place upon the OR table and anesthesia was induced. The airway was secured. She was positioned on the OR table supine. A rolled blanket bump was placed under the ipsilateral hip. The ramp bone foam positioner was used under the operative extremity. A nonsterile tourniquet was placed high on the thigh. The limb was then prepped and draped in the usual sterile manner for knee surgery. Surgical timeout was called by the circulating nurse, and verified by all present. Antibiotics had been infused, and equipment was available and functional. Examination under anesthesia was carried out with the assistance of fluoroscopy. Incision was planned, and the Esmarch bandage was used to exsanguinate the extremity. The tourniquet was inflated to 250 mmHg for a total of 120 minutes. Curvilinear incision was made over the lateral tibial plateau. Full-thickness flaps were developed to the anterior compartment. The IT band was split at Keyla's tubercle and the split was carried proximally. The split was carried down onto the periosteum and the periosteum was elevated from the proximal lateral tibial plateau distally elevating the anterior compartment laterally. This exposed the fracture site. There was multiple comminuted fracture lines. Hematoma was evacuated. The bone was spongy. No interfragmentary fixation was possible given the degree of comminution. The fibular head was unstable as well. Given the degree of comminution, I felt it was best to distract the lateral side. The incision was carried proximally to allow access to the distal diaphys is of the femur. 5 mm Schanz pin was placed here using fluoroscopy for guidance. We then provisionally placed the plate of the longest possible length over the tibia to ensure we are distal enough for a Schanz pin in the tibia. This was placed percutaneously. The universal distractor was then loaded onto the Schanz pins. Axial distraction of the lateral column of the tibia was then performed using the universal distractor under fluoroscopic guidance for reduction. Manual pressure on the metaphyseal segment reduced the fracture well. I could not access the subchondral bone easily due to the degree of comminution. Fluoroscopy demonstrated an intact plateau. The fibular head also was better reduced under distraction. A large periarticular reduction clamp was then brought onto the field and applied. A medial stab incision was made using fluoroscopic guidance to place the clamp. Reduction of the joint surface accomplished using manual pressure on the metaphysis, and then the periarticular reduction clamp achieved compression. This resulted in what appeared to be normal anatomic alignment the lateral tibial plateau. Reduction was satisfactory. With reduction clamp and distraction in place, rafting K wires of 2 mm size were placed anterior and posterior to the clamp and parallel to the articular surface. These were run through to the medial side and pulled out to avoid blocking or plate placement with the K wires. With the K wires holding the reduction, the periarticular clamp was removed. Reduction was confirmed to be stable. The 8 hole proximal tibial plate was then sized and to ensure it was down the shaft enough to bypass the fracture extension, based on the CT and fluoroscopic views. The 8 hole plate fit well. It was placed proximally using fluoroscopic guidance. A 3 5 nonlocking cortical screw was then placed in the central position on the proximal row of screws in the rafting area. This placed the plate firmly down to bone. We ensured appropriate alignment distally down the shaft, and the plate was held with a K wire. The proximal rafting locking screws were then placed. We did 3 of these with variable angle to spread throughout the plateau, based on the CT-identified fracture pattern. The nonlocking screw was then swapped for a locking screw to complete our proximal row fixation. We then directed attention to the shaft portion of the plate. A nonlocking screw was placed in the fourth the last hole to reduce the plate down to bone. This further improved the reduction in the plate fit very well. 3 locking screws were placed in the distalmost 3 holes using fluoroscopic guidance and with some extension of the incision distally. It was felt that extending the incision was less traumatic to the skin and then a percutaneous technique given the closeness of the holes. The anterior compartment fascia was opened with edges left for repair, and the muscle retracted posteriorly the visualized the plate for screw placement. The plate construct was stable. It then moved back to the metaphyseal locking screws and placed 3 additional locking screws in this region to capture the fragments. The reduction appeared to be anatomic on x-ray. The plate appeared to be fit well to bone. Screw lengths were also checked. The fixation was stable, and the reduction was acceptable. The wound was then thoroughly irrigated. Given the preponderance of concomitant articular abnormalities and to evaluate the joint reduction, knee arthroscopy was then performed. Standard anterolateral portal was established using the proximal extent of the incision. The trocar was used into the joint. We then irrigated the hematoma. A medial portal was established using a spinal needle for localization. Skin incision was made, and the motorized katharina were introduced to continue evacuate the hematoma. Knee arthroscopic findings are listed above. There was some mild patella chondromalacia rated grade 3 and 4 which was treated with chondroplasty given the anesthetic opportunity. The trochlear cartilage was intact. There were no loose bodies in the anterior compartment or gutters. The medial compartment showed very mild chondromalacia that was widespread and rated at grade 2. The medial meniscus was intact. Cruciate ligaments were intact. The lateral compartment was entered in the [id number] position. There was no obvious step-offs of the joint. There did appear to be some mild depression posteriorly in the lateral compartment, but the lateral meniscus was intact through the posterior horn. The body of the lateral meniscus had a radially oriented traumatic appearing tear. The motorized shaver was then introduced here to perform a partial lateral meniscectomy that involves only about 30% of the depth of the meniscus. Remainder of the joint appeared to be unaffected. The knee was then decompressed of arthroscopic fluid and the trocars were removed. Thorough irrigation of the open wound and plate was then conducted using arthroscopic high flow pump. The anterior compartment fascia and IT band was then repaired using interrupted #1 Vicryl stitches. The plate covered easily with soft tissue. The deep fat and fascial layers were approximated with interrupted #1 Vicryl stitches followed by 0 Vicryl stitches in a buried knot fashion in the deep dermal layer. 2-0 Vicryl was then used in the dermis. Final skin closure was accomplished with hieu. Local anesthetic was infused throughout the region. There was adequate hemostasis prior to wound closure with the tourniquet down. Total tourniquet time was 120 minutes at 250 mmHg. The wounds was dressed with sterile Xeroform, sterile gauze, ABDs and contained by sterile Webril. Abundant Webril was placed around the proximal tibia and knee. Along flex master Maciel wrap was placed from toes to thigh and secured with tape. A range of motion brace was then fit and applied. Brace was locked in extension with a range of motion set from 0-90. The patient tolerated the procedure well, was extubated in the operating room without complication, and transferred to the recovery area in stable condition. Disposition: The patient will remain inpatient for pain management and monitoring of her compartments and blood loss. She should be nonweightbearing, only using toe-touch for balance. Range of motion will be as tolerated and can begin as soon as pain allows. DVT prophylaxis will consist of oral aspirin therapy as well as mechanical means well in bed. She will be discharged when pain is controlled and she is cleared by physical therapy and Occupational Therapy. Physician special ed assistant attestation: Haider Whiteside PA-C was present and scrubbed for the duration of the case. He was essential to prepping/draping, patient positioning, retraction, and assistance with wound closure. I attest to the content of the Intraoperative Record and any orders documented therein. Any exceptions are noted below.
--- NOTE | 2022-10-15 17:22 | XRay Report ---
LEFT KNEE 2 VIEWS CLINICAL HISTORY: Postoperative examination. FINDINGS: AP and crosstable lateral portable views of the left knee are compared to study dated 2022. A traction device is in place. The skeletal structures are well-mineralized. Again seen are com minuted fractures of the proximal tibia and fibula. There has been buttressed plate fixation along th e lateral cortex of the proximal tibia with mandaeism of near-anatomic alignment. Numerous cortical lag screws transfix the plate. The orthopedic hardware appears intact. Screw tracks are seen in the distal femoral shaft. A joint effusion is noted. Skin clips, subcutaneous gas, and soft tissue swelli ng overlying the knee are expected postoperative changes. IMPRESSION: Proximal tibial and fibular fractures as above status post buttress plate fixation of the proximal tibia. See above. Electronically signed by: Yemi Culver M.D. 10/15/2022 5:21 PM
--- NOTE | 2022-10-15 17:24 | Anesthesiology Progress Note ---
Date of Service October 15, 2022 Anesthesia Post Procedure Vital Signs Vital Signs: Temp Pulse Pulse Pulse Resp BP BP 10/15/22 17:10 79 20 133/87 10/15/22 17:20 97.7 F 84 18 131/91 10/15/22 17:00 76 20 135/89 10/15/22 16:50 73 20 131/92 10/15/22 16:40 76 18 146/94 H 10/15/22 16:39 97.7 F 89 20 145/88 H 10/15/22 12:09 97.9 F 63 18 147/93 H 10/15/22 09:13 10/15/22 07:31 98.1 F 70 16 120/83 10/14/22 18:45 71 10/14/22 21:16 98.4 F 70 18 109/72 10/14/22 17:57 75 18 128/85 Pulse Ox O2 Del Method O2 Flow Rate 10/15/22 17:10 94 Nasal Cannula 4 10/15/22 17:20 94 Nasal Cannula 3 10/15/22 17:00 93 Nasal Cannula 4 10/15/22 16:50 94 Oxymask 8 10/15/22 16:40 95 Oxymask 8 10/15/22 16:39 96 Oxymask 8 10/15/22 12:09 93 Room Air 10/15/22 09:13 Room Air 10/15/22 07:31 95 Room Air 10/14/22 18:45 10/14/22 21:16 95 Room Air 10/14/22 17:57 97 Room Air Pain Intensity Knee: Pain Intensity: 7 Transfer of Care Handoff Completed per policy Notes Mental Status: alert / awake / arousable and participated in evaluation Patient Amnestic to Procedure: Yes Nausea / Vomiting: adequately controlled Pain: adequately controlled Airway Patency, RR, SpO2: stable & adequate BP & HR: stable & adequate Hydration State: stable & adequate Anesthetic Complications: no major complications apparent and Pt Satisfied with anesthetic care
[2022-10-15] MEDS ORDERED: MAGNESIUM HYDROXIDE SUSP 30 ML UDC PO PRN (17:54)
[2022-10-15] MEDS ORDERED: SODIUM CHLORIDE 0.9% 1000ML 1,000 ML IV SCH (17:54)
[2022-10-15] MEDS ORDERED: bisacodyL 10 MG SUPP PR PRN (17:54)
[2022-10-15] MEDS ORDERED: METOCLOPRAMIDE HCL INJ 5 MG/ML 2 ML VIAL IV PRN (17:54)
[2022-10-15] MEDS ORDERED: NALOXONE HCL 0.4 MG/1 ML VIAL/CARP IV PRN (17:54)
[2022-10-15] MEDS ORDERED: SENNA 8.6 MG TAB PO SCH (21:00)
[2022-10-15] MEDS: ceFAZolin 2000MG 2,000 MG/15 ML SYR IV SCH (22:12)
[2022-10-16] MEDS: oxyCODONE HCL IR 5 MG TAB (IMMEDIATE RELEASE) PO PRN ×3 (01:09→10:30)
[2022-10-16] MEDS: HYDROmorphone INJ 0.5 MG/0.5 ML SYR IV PRN ×3 (02:11→12:30)
[2022-10-16] MEDS: ceFAZolin 2000MG 2,000 MG/15 ML SYR IV SCH (06:22)
[2022-10-16 08:08] LABS: Hematocrit (blood only) 30.3 % (37.0-47.0); Mean Corpuscular Hemoglobin 33.1 pg (25.0-34.0); Mean Corpuscular Volume 100.3 fL (80.0-100.0); Mean Platelet Volume 11.3 fL (9.4-12.4); Platelet Count 129 K/uL (130-400); RDW Coefficient of Variation 12.3 % (11.5-14.5); RDW Standard Deviation 45.1 fL (36.4-46.3); Red Blood Count 3.02 M/uL (4.20-5.40); White Blood Count 8.82 K/ul (4.8-10.8)
[2022-10-16] MEDS: DOCUSATE SODIUM 100 MG CAP PO SCH ×2 (08:20)
[2022-10-16 08:25] LABS: Calcium 8.3 mg/dl (8.6-10.3)
[2022-10-16 08:30] LABS: BUN Creatinine Ratio 15.2 (10-20); Creatinine Clr Calc Pharmacy 68.5 ml/min; Est GFR (African American) 76.8 ml/min; Est GFR (Non-African American) 66.3 ml/min
[2022-10-16] MEDS ORDERED: ASPIRIN 325 MG ECTAB PO SCH (09:00)
[2022-10-16] MEDS ORDERED: CALCIUM CARBONATE 1250MG TAB PO SCH (09:00)
[2022-10-16] MEDS ORDERED: NON-FORMULARY MEDICATION (Multivitamin Tablet) PO SCH (09:00)
[2022-10-16] MEDS ORDERED: ESCITALOPRAM OXALATE 10 MG TAB PO SCH (09:00)
[2022-10-16] MEDS ORDERED: MULTIVITAMIN TAB PO SCH (09:00)
--- NOTE | 2022-10-16 10:36 | Orthopedic Progress Note ---
Date of Service October 16, 2022 Assessment & Plan (1) Closed fracture of lateral portion of left tibial plateau: Making expected progress POD1 TTWBing for 6 weeks ROMAT to knee PT/OT consults DVT = ASA 325 daily 24 periop abx ppx. OK to discharge today pending pain control with mobilization in PT/OT. Expect t o be able to discharge home with visiting therapy - [facility], which can be arranged by our clinic Subjective Pain tolerable with current regimen. Educated on brace. No other issues Review of Systems All systems reviewed & are unremarkable except as noted in HPI & below. Physical Exam LLE: brace well fit. dressing c/d/i. DNVI Constitutional WD/WN, vitals as above no acute distress and not intoxicated appearing Respiratory normal respiratory effort; no labored breathing Cardiovascular Extremities: normal capillary refill Results & Data Results & Data Laboratory Results H & H 10/15/22 10/16/22 Range/Units 12:23 07:39 Hgb 11.7 L 10.0 L (12.0-16.0) g/dl Hct 35.2 L 30.3 L (37.0-47.0) % Coagulation 10/15/22 Range/Units 12:23 INR 1.0 (0.9-1.1) Diagnostic Findings Left knee postop xrays show no complications PG Care Time/CCT Total # of Minutes Spent Total Time Spent with Patient: Total time spent is greater than 50% in coordination of care (as documented) at patient's floor/unit and/or counseling patient: Coding Level of Care Code 38914 Post Operative Follow-Up Diagnoses Closed fracture of lateral portion of left tibial plateau S82.122A
--- NOTE | 2022-10-17 18:12 | Discharge Summary ---
Date of Service October 17, 2022 Admission HPI (Per Admitting) 62-year-old female sustained fall from a 4 foot height today while trying to change a light bulb, resulting in immediate pain at the knee and inability to bear weight. She was brought to the emergency room where a lateral tibial plateau fracture was diagnosed. Pain localized to the knee. Denies any numbness or tingling. She reports no previous history of knee pain or injury. She is an avid cyclist and active individual. Previous wrist fracture treated greater than 10 years ago with a cast. No knowledge of osteoporosis. No family history of osteoporosis. No history of blood clots or active cancer. Admission Exam (Per Admitting) LLE: Mild knee effusion. Some edema formation about the proximal tibia. Positive DF/PF/EHL. Neurovascular intact. Focally tender along the proximal tibia and fibular head. Can activate quad but cannot perform straight leg raise without significant pain. Intolerant of ligamentous exam. No skin compromise. Principal Diagnosis Same as "Discharge Diagnosis" noted below under Discharge Instructions. Discharge Exam LLE: brace well fit. dressing c/d/i. DNVI Discharge Data Procedures Performed Operation Date: 10/15/22 08:20 Actual Procedures p Left Open Reduction Internal Fixation Tibial Plateau Fracture(Left) - Yehuda Rojas MD s , Left Knee Arthroscopy, Partial Lateral Meniscectomy(Left) - Yehuda Rojas MD Ordered Studies 10/14/22 12:58 CT knee LT wo con Stat 10/15/22 FL tibia/fibula LT 2V Routine 10/15/22 12:52 US - OR guided needle placemen Routine Hospital Course (1) History of knee surgery: (2) Fracture of left proximal fibula: (3) Closed fracture of lateral portion of left tibial plateau: Plan The patient was admitted on the night of injury for the emergency room for surgery the next day. She was treated with strict bedrest and elevation to reduce swelling for plateau fracture ORIF. The surgery was uncomplicated on 10/15/2022. She remained in the hospital for pain management. On postoperative day 1 she was found stable for discharge after completing therapy evaluation. PG Care Time/CCT Total # of Minutes Spent Total Time Spent with Patient: Total time spent is greater than 50% in coordination of care (as documented) at patient's floor/unit and/or counseling patient: Discharge Plan Discharge Items Patient Disposition: Home - Self-Care Reason For Visit: LEFT TIBIAL PLATEAU FRACTURE Discharge Diagnosis: Same as above Activity: Per Instructions section Non-emergency contact: Surgeon Call non-emergency contact if: you have any medication questions, your pain is not controlled and your temperature is above 101 Follow-up/Referrals: Yehuda Rojas MD [Surgeon] - (Office will call patient to set up follow up appointment) Yunior Leon MD [Primary Care Provider] - Diet: Regular Addtl Attending Provider Instructions: Yehuda Rojas M.D. [facility] Orthopedic Surgery [address] [facility] [address] [facility], [place] [address] POSTOPERATIVE INSTRUCTIONS TIBIAL PLATEAU FRACTURES BRACE: Keep the postoperative brace in place unless the limb is fully supported in a resting position. Always wear your brace locked in extension when walking, standing, or transferring. You may open your brace for careful hygiene and ROM exercises described below. The brace is used to protect motion. Unlock the ROM brace with the 2 red buttons on either side of the knee for ROM exercises. Lock again in full extension to get up and walk. Continue to wear the brace until further instructions at your post-op appointment with Ortho. Adjust the tension of the brace to be comfortable but secure, as needed. MOTION: You always want to be sure to get the knee completely straight back of knee towards the bed. You can bend your knee as much as pain will allow. Do not push through pain. WEIGHTBEARING: Flat Foot Weightbearing means no weight should be transferred on the affected extremity. You may place your foot on the ground, but do not transfer weight or stride on the leg. ACTIVITY: Please perform ROM (Range of Motion) exercises at least three times per day: 1. Ankle plantarflexion (gas pedal down) and dorsiflexion (pull foot up) 2. Toe flexion/extension wiggle toes 3. Straight leg raises hold your quads tight, lift your heel off the bed 12-15 inches while keeping the knee straight. Repeat. This should be done with the brace in place until first postop. 4. Knee flexion/extension lie with leg flat, unlock the brace, drag heel up the bed towards your buttocks, slowly return to flat position, try to get your leg completely straight (try to touch the back of your knee to the bed) WOUND CARE: Leave the dressing in place and keep the area clean and dry. After 3 days, you may remove your dressing. DO NOT REMOVE ANY JULISSA. After removing your dressing, you may begin to shower. Do not soak the incision. Allow gentle soap and water to run over the wound(s) and pat dry. Please cover the incision(s) with a clean, dry dressing, as needed. Do not use any ointments or topical medications unless directed by your surgeon. Do not submerse the incisions in water no pools, oceans, lakes, jacuzzis, bathtubs, etc for at least 3 weeks. PAIN CONTROL If you had an ANESTHETIC BLOCK, the effects will wear off in 6-12 hours. When you feel sensation returning, be ready with a pain medication. You may experience rebound pain for a few hours before pain subsides. Stay ahead of the pain with your medications. Elevation is your best friend. Elevate the affected extremity above the level of your heart. Swelling is simply fluid. Elevation will allow the fluid to run down hill, reduce swelling, and decrease pain. The affected extremity should be continuously elevated for the first 2-3 days, with the exception of bathroom, hygiene, etc. You may be prone to swelling for several weeks, or until you return to normal function with your leg. Use ice (or cryocuff if you have one). Use for 30 minutes per hour. Consistent ice is most useful during the first 2-3 days. Medications: 1. Oxycodone (OxyIR) 1-2 tablet(s) orally every 4 hours for pain as needed. Use with Tylenol. Begin tapering OxyIR as soon as possible: reduce from 2 to 1 pills per dose, then spread out the doses over greater time intervals, then try to use only for therapy or for comfort while sleeping. Continue to use regular Tylenol until pain subsides. 2. Tylenol (325mg): 3 tablets every 8 hours orally. Regular dosing of Tylenol is an important part of your baseline pain control. Do not taper Tylenol until you have successfully tapered off of regular OxyIR. Do not take more than 3000mg of Tylenol per day. 3. Zofran 1 tablet orally every 6 hours as needed for nausea related to anesthesia, pain, and narcotic medications 4. Aspirin (325mg): Take one tablet by mouth every day for 6 weeks to reduce the risk of dangerous blood clots. CONSTIPATION: Narcotic pain medications can slow down your digestive track, leading to constipation. Stay hydrated. While taking narcotics, the use of stool softeners is recommended. Two over the counter options are: 1. Colace (100mg): take 1-2 tabs twice daily to avoid constipation from OxyIR or other narcotics. 2. Miralax 1 tablespoon in a glass of water 2 times daily until normal bowel movements FOLLOWUP: 1. Ortho Clinic: You should be seen in 10-14 days. Please call immediately to schedule if you do not have an appointment. 2. PHYSICAL THERAPY: This is typically started after the 2 week postop. If you would like help with crutching and motion exercises, please call the ortho clinic. We can place a consult to get you started with therapy sooner. WHEN TO CALL. If you develop any of the following symptoms, please contact the Orthopedic Clinic at [phone]: Temperature greater than 101 degrees F taken twice, difficulty breathing, bleeding, fever and chills, increased pain unrelieved by pain meds, or any other concerns. Pending Studies at Discharge: No Stand-Alone Forms: [facility] [email or web address], Smoking Cessation Medications and DC Order Prescriptions: New ondansetron HCl 4 mg tablet 4 mg PO Q6H PRN (Reason: nausea and vomiting) Qty: 12 0RF Continued multivitamin Tablet 1 tab PO DAILY calcium carbonate [Calcium 600] 600 mg calcium (1,500 mg) Tablet 600 mg PO DAILY escitalopram oxalate 10 mg tablet 10 mg PO DAILY No Action oxycodone 5 mg tablet 5 - 10 mg PO Q4H PRN (Reason: pain, initial therapy) Qty: 18 0RF Rx Instructions: 1-2 tabs every 4 hours as needed for pain; maximum 6 tabs daily Discharge Orders: Discharge Order (Routine); Ordered 10/16/22 Ordered By: Yehuda Rojas Admission Data Admit Date/Time: 10/14/22 15:38 Attending Provider: Yehuda Rojas Admit Provider: Yehuda Rojas Primary Care Provider: Yunior Leon Other Providers: [facility] Other Interventions: Discharge Summary Assessment (RN) Last Done: 10/16/22 10:41
== END 2022-10-16 13:20 | disposition home health service (06) | DRG 488 ==
LOC: ED 11:50 → 3W 15:38